=== PATIENT | female | born 1995 | race Caucasian/White ===

== ENCOUNTER 2018-08-23 11:48 | Outpatient (CLI) | payer BC ==
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
== END 2018-08-23 11:49 | disposition home or self-care (01) ==
LOC: BICRAD 11:48
PROVIDERS: ATTEND Family Medicine
DX: M54.2 Cervicalgia (principal); M54.6 Pain in thoracic spine
CPT/HCPCS: 36415; 72052; 72072; 80053; 80061; 81001; 84443; 85025

== ENCOUNTER 2018-09-15 12:27 | Outpatient (CLI) | payer OTHER, BC ==
--- NOTE | 2018-09-15 14:41 | MRI ---
MRI CERVICAL SPINE NONCONTRAST: Date: 09/15/18 HISTORY: 23-year-old female with cervical radiculopathy, M54.12. Cervicalgia that radiates to left upper extremity, with intermittent hypesthesia and paresthesia. FINDINGS: No Chiari I malformation. Alignment is normal. Cervical spine cord is normal in size and signal. No s yrinx. Bone marrow signal is normal. No high grade disc space narrowing at any level. No high grade f acet DJD at any level. At C5-6, there is a very small left paracentral disc herniation which abuts th e left paramedian ventral aspect of the spinal cord, without causing central spinal canal stenosis. T here is no central spinal canal stenosis at this level or any other level. No neural foraminal stenos is at any level. No nerve root impingement at any level. Perivertebral spaces are unremarkable. IMPRESSION: 1. At C5-C6, there is a very small left paracentral disc herniation abutting the ventral aspect of t he spinal cord. 2. Otherwise normal. POS: [facility]
--- NOTE | 2018-09-15 15:14 | MRI ---
MRI THORACIC SPINE NONCONTRAST: DATE: 09/15/2018. HISTORY: A 23-year-old female with M54.14, thoracic radiculopathy. Mid back pain that radiates to left upper extremity, with paresthesia and hypesthesia. FINDINGS: The thoracic spinal cord is normal in size and signal. No syrinx. The vertebral body heights are ma intained. Bone marrow signal is normal. The disk spaces are maintained, with normal disk signal. N o focal disk herniation identified. No central stenosis or neural foraminal stenosis at any level. No cord impingement or nerve root impingement at any level. There is a minimal lateral curvature, co nvex right. Perivertebral spaces are unremarkable. IMPRESSION: 1. Minimal lateral curvature. 2. Otherwise, normal. POS: [facility]
== END 2018-09-15 12:28 | disposition home or self-care (01) ==
LOC: BICMRI 12:27
PROVIDERS: ATTEND Family Medicine
DX: M50.122 Cervical disc disorder at C5-C6 level with radiculopathy (principal); M54.14 Radiculopathy, thoracic region; M43.9 Deforming dorsopathy, unspecified
CPT/HCPCS: 72141; 72146